=== PATIENT | male | born 1980 | race Caucasian/White ===

== ENCOUNTER 2022-08-03 00:28 | Observation (INO) | payer BC ==
[~2022-08-03] VITALS: Ht 188 cm; Wt 113.5 kg
[2022-08-03] VITALS (11 sets, daily range): BP systolic 114–152; BP diastolic 62–89
[2022-08-03] MEDS ORDERED: morphine INJ 4 MG/ML 1 ML (VIAL/SYRINGE) ONE (01:29)
[2022-08-03] MEDS ORDERED: LACTATED RINGERS 1,000 ML IV ONE (01:29)
[2022-08-03] MEDS: morphine INJ 4 MG/ML 1 ML (VIAL/SYRINGE) IVP PRN ×4 (01:33→08:16)
[2022-08-03] MEDS: LACTATED RINGERS 1,000 ML IV SCH ×3 (01:33→11:51)
[2022-08-03] MEDS ORDERED: ONDANSETRON 4 MG/2 ML (SDV) Z0FRAN IVP PRN ×2 (02:00→10:30)
[2022-08-03] MEDS ORDERED: PIPERACILLIN SODIUM/TAZOBACTAM 4.5 GM in NS (IVPB) 100 ML IV ONE (04:15)
[2022-08-03] MEDS ORDERED: ALLO300T2 PO (04:30)
[2022-08-03] MEDS ORDERED: METO50TA7 PO (04:30)
[2022-08-03] MEDS ORDERED: TRIA1CAP84 PO (04:30)
[2022-08-03] MEDS ORDERED: FLEC150T2 PO (04:35)
[2022-08-03] MEDS ORDERED: ASPI-999 PO (04:35)
[2022-08-03] MEDS: PIPERACILLIN SODIUM/TAZOBACTAM 4.5 GM in NS (IVPB) 100 ML IV SCH ×2 (06:01→14:04)
[2022-08-03] MEDS: KETOROLAC 30 MG/ML VIAL IVP PRN ×2 (08:17→17:16)
[2022-08-03] MEDS ORDERED: PANTOPRAZOLE 40 MG (PROTONIX) VIAL IV SCH (09:00)
[2022-08-03] MEDS ORDERED: BUP/EPI 0.5% 1:200,000 (SENSORCAINE) 30 ML VIAL ONE (10:29)
--- NOTE | 2022-08-03 10:29 | Consultation - Surgery ---
History of Present Illness History of Present Illness Patient Consulted On(ketan/time) 08/03/22 10:23 Time Seen by Provider: 10:06 History of Present Illness Surgery asked to consult regarding appendicitis. HPI: Pt is a 42 yo male who initially presented to [facility] with c/o RLQ pain. He told me he woke up around 2:30am on Friday with "bloating" and then he started vomiting; "I am not a puker". The vomiting got a little better with rest and then the pain started. He described it as sharp, stabbing pain made worse by movement. He rated it at its worst as 8 out of 10. He was unable to eat yesterday and when it didn't get better he went to the ER. He states this am it is ok after the Toradol and because he is not moving. Yesterday he did have some sweats and chills. Last PO intake was some fluids at 1730 yesterday. Allergies and Home Medications Allergies Coded Allergies: No Known Drug Allergies (Unverified , 08/03/22) Patient Home Medication List Home Medication List Reviewed: Yes Allopurinol (Allopurinol) 300 Mg Tablet, 300 MG PO DAILY, (Reported) Entered as Reported by: CORNELIO QUIROZ on 08/03/22429 Last Action: Reviewed Aspirin (Aspirin) 81 Mg Tab.chew, 81 MG PO, (Reported) Entered as Reported by: CORNELIO QUIROZ on 08/03/22434 Last Action: Reviewed Flecainide Acetate (Flecainide Acetate) 150 Mg Tablet, 150 MG PO BID, (Reported) Entered as Reported by: CORNELIO QUIROZ on 08/03/22434 Last Action: Reviewed Metoprolol Succinate (Metoprolol Succinate) 50 Mg Tab.er.24h, 50 MG PO DAILY, (Reported) Entered as Reported by: CORNELIO QUIROZ on 08/03/22429 Last Action: Reviewed Triamterene/Hydrochlorothiazid (Triamterene-Hctz 37.5-25 mg Cp) 37.5 Mg-25 Mg Capsule, 1 EACH PO DAILY, (Reported) Entered as Reported by: CORNELIO QUIROZ on 08/03/22429 Last Action: Reviewed Past Ttijorp-Ttzelp-Btdbxx Hx Patient Social History Smoking Status: Never a Smoker Alcohol Use?: Yes Surgeries History of Surgeries: Yes Surgeries: Nose Respiratory History of Respiratory Disorde: No Cardiovascular History of Cardiac Disorders: Yes (hx of SVT) Neurological History of Neurological Disord: No Reproductive System Hx Reproductive Disorders: No Genitourinary History of Genitourinary Disor: No Gastrointestinal History of Gastrointestinal Di: Yes Gastrointestinal Disorders: Gastroesophageal Reflux Musculoskeletal History of Musculoskeletal Dis: Yes Musculoskeletal Disorders: Gout Endocrine History of Endocrine Disorders: No HEENT History of HEENT Disorders: No Loss of Vision: Denies Hearing Impairment: Denies Cancer History of Cancer: No Psychosocial History of Psychiatric Problem: Yes Behavioral Health Disorders: ADD/ADHD Family Medical History Significant Family History: Renal Disease (Father from renal failure), Vascular Disease (Mother from blood clot) Review of Systems-General Constitutional: chills, diaphoresis EENTM: No mouth swelling, No epistaxis, No throat swelling Respiratory: No cough, No dyspnea on exertion Cardiovascular: No chest pain, No palpitations Gastrointestinal: abdominal pain (RLQ); No hematemesis, No jaundice; loss of appetite, nausea, vomiting Genitourinary: No dysuria, No frequency, No hematuria Musculoskeletal: gout, joint pain, joint swelling, muscle stiffness Skin: No change in color, No change in hair/nails Psychiatric/Neurological: Denies Anxiety, Denies Depressed, Denies Seizure, Denies Tremors Physical Exam-General Problems Physical Exam Vital Signs Vital Signs - First Documented 08/03/22 01:30 Temp 37.2 Pulse 94 Resp 20 B/P (MAP) 114/65 (81) Pulse Ox 97 O2 Delivery Room Air Capillary Refill : General Appearance: WD/WN, mild distress (secondary to pain) Eyes: Bilateral Eye PERRL, Bilateral Eye EOMI HEENT: pharynx normal; No scleral icterus (R), No scleral icterus (L) Neck: non-tender, supple Respiratory: lungs clear, normal breath sounds, no respiratory distress, no accessory muscle use Cardiovascular: regular rate, rhythm, no murmur Gastrointestinal: soft, no organomegaly, distended, guarding (voluntary), tenderness (RLQ), hernia (umbilical) Rectal: deferred Back: no CVA tenderness, no vertebral tenderness Extremities: non-tender, no pedal edema, no calf tenderness Neurologic/Psychiatric: nurse sitter II-XII nml as tested, alert, normal mood/affect, oriented x 3 Skin: normal color, warm/dry Lymphatic: no adenopathy (neck, axilla or groin) Assessment/Plan Assessment/Plan Assessment/Plan Acute Appendicitis Hx of SVT Hypokalemia Pt was sent over from [place] last night because they do not have surgical crew on the weekend. He was admitted with IV fluids, IV ABX, pain meds and anti- emetics as needed. I talked to him today about the procedure; Laparoscopic Appendectomy, possible open and all other indicated procedures. We discussed risks and complications not limited to pain, bleeding, infection, scar, damage to bowel and need for further procedure. All questions answered to his satisfaction. Will get consent and do surgery. SHAYLA HOPPER DO Aug 03, 2022 10:29
[2022-08-03] MEDS ORDERED: morphine INJ 10 MG/ML 1ML (SYR OR VIAL) IVP ONE (10:30)
[2022-08-03] MEDS ORDERED: MEPERIDINE (DEMEROL) INJ 50 MG/ML IVP ONE (10:30)
[2022-08-03] MEDS ORDERED: fentaNYL INJ 100 MCG/2 ML AMP IVP ONE (10:30)
[2022-08-03] MEDS ORDERED: LACTATED RINGERS 1,000 ML IV PRN (10:30)
[2022-08-03] MEDS ORDERED: LIDOCAINE PF 2% 5 ML (XYLOCAINE) VIAL ONE (10:33)
[2022-08-03] MEDS ORDERED: SEVOFLURANE (ULTANE) 15 ML INHAL SOLN ONE ×2 (10:33→12:10)
[2022-08-03] MEDS ORDERED: proPOfol 200 MG/20 ML (DIPRIVAN) VIAL IV ONE (10:33)
[2022-08-03] MEDS ORDERED: ONDANSETRON 4 MG/2 ML (SDV) Z0FRAN ONE (10:33)
[2022-08-03] MEDS ORDERED: fentaNYL INJ 100 MCG/2 ML AMP ONE (10:33)
[2022-08-03] MEDS ORDERED: MIDAZOLAM 2 MG/2 ML (VERSED) VIAL ONE (10:33)
[2022-08-03] MEDS ORDERED: morphine INJ 10 MG/ML 1ML (SYR OR VIAL) ONE (11:07)
[2022-08-03] MEDS ORDERED: ceFAZolin INJECTION 0 MG ONE (11:14)
[2022-08-03] MEDS ORDERED: ROCURONIUM 50 MG/5 ML (ZEMURON) VIAL IV ONE (12:18)
[2022-08-03 12:42] LABS: CLARITY,URINE TURBID; COLOR,URINE ORANGE; GLUCOSE, URINE (UA) NEGATIVE (NEGATIVE); KETONES,URINE NEGATIVE (NEGATIVE); LEUKOCYTE ESTERASE ,URINE NEGATIVE (NEGATIVE); NITRITE,URINE POSITIVE (NEGATIVE); PROTEIN,URINE 1+ (NEGATIVE)
[2022-08-03 13:07] LABS: AMORPHOUS SEDIMENT,UR LARGE AMOR URATES /LPF; BACTERIA,URINE NEGATIVE /HPF; BILIRUBIN,URINE 1+ (NEGATIVE)
--- NOTE | 2022-08-03 13:07 | Progress Note-Post Operative ---
Post-Operative Progess Note Surgeon (s)/Urology Nurse (s) Surgeon SHAYLA HOPPER DO Urology Nurse: none Pre-Operative Diagnosis Acute Appendicitis Post-Operative Diagnosis Same plus perforation and necrotic appendix B/L Indirect Inguinal hernia Procedure & Operative Findings Date of Procedure 08/03/22 Procedure Performed/Findings PROCEDURE: Laparoscopic appendectomy. COMPLICATIONS: None. INDICATIONS: The patient is a 42 year old male who has been having right lower quadrant abdominal pain. Patient's exam consistent with appendicitis. I discussed risk and benefits of laparoscopic appendectomy and all indicated procedures. The patient understands the risks and benefits and wishes to proceed. Consent was signed on the chart. DESCRIPTION OF PROCEDURE: The patient was taken to the operating suite, prepped and draped in a sterile fashion. Timeout was performed. Local anesthetic was infiltrated just above the umbilicus and 11-blade scalpel was used to make a skin incision. Cautery was used to dissect down to the fascia and scored. Kochers were used to grasp and elevate it and the abdomen was then entered. An 0 Vicryl was placed in a [id number] fashion for closure at the end of the case. The balloon trocar was inserted into the abdomen and pneumoperitoneum was achieved. Under direct visualization of the laparoscope, a 5 mm trocar was placed in the suprapubic region and a 5 mm trocar was placed in the left lower quadrant. Appendix was located, it was almost embedded in the wall and retrocecal. It was very inflamed and while moving it some purulent fluid came out. Multiple pictures were taken and able to identify the terminal ileum and cecum. Started dissecting down to the base of the appendix with the Ligasure and once around it then able to use Stapling device. An Endo-VIKAS 2.5 stapler was then fired across the base of the appendix. The meso- appendix was then divided. It was then placed in an Endobag and removed through the 12 mm trocar site. The abdomen was then irrigated with approximately 2 Liters and suctioned out. There was some scant bleeding and I placed a surgicel. I then placed a 19French adriano drain in right paracolic gutter and brought it out through the suprapubic port site. I then noted bilateral indirect inguinal hernias. The abdomen was then desufflated and the trocars were removed. The 0 Vicryl placed at the beginning of the case was then tied closing the 12 mm fascial defect. The drain was sutured in place using a 3-0 Nylone. The skin was then closed using 4-0 Monocryl in a subcuticular fashion. The abdomen was then washed and dried and Skin Affix was placed over the incisions. The patient tolerated the procedure well without any complications and was taken to the recovery room in stable condition. Anesthesia Type GET Estimated Blood Loss Estimated blood loss (mL): less than 10ml Specimens/Packing Specimens Removed appendix SHAYLA HOPPER DO Aug 03, 2022 13:07
[2022-08-03] MEDS ORDERED: AMOX-355 PO (13:15)
[2022-08-03] MEDS ORDERED: ACHD5005 PO (13:15)
--- NOTE | 2022-08-03 13:18 | Discharge Inst-Surgical ---
Discharge Inst-Surgical Depart Medication/Instructions New, Converted or Re-Newed RX: Transmitted to Pharmacy Patient Instructions Follow up Appt: Make appointment for 1 week. [phone] Instructions: No lifting greater than 20 pounds. No strenuous activity. May shower in 24 hours, no tub bath or soaking. Use incentive spirometer at home as directed. No Smoking Skin/Wound Care: May remove bandages in am. You need to leave the Dermabond on incision it will fall off on it's own. Leave drain in place and record output. Symptoms to Report: Appetite Changes, Extremity Discoloration, Numbness/Tingling, Swelling Incr eased, Bleeding Excessive, Eyesight Changes, Pain Increased, Urine Color Change, Constipation(Persistent), Fever over 101 degree F, Pain/Pressure in chest, Urinating Difficulty, Cough Up/Vomit Blood, Heart Beat Irreg/Pounding, Pain/Pressure in jaw, Cramps in feet or legs, Lightheadedness, Pain/Pressure in shoulder, Diarrhea(Persistent), Memory Changes Suddenly, Questions/Concerns, Weight gain consecutive days, Dizziness/Fainting, Nausea/Vomiting, Shortness of Breath, Weight gain over 2 pounds If questions or concerns contact your physician Or seek help at emergency department. Activity Activity as Tolerated: Yes Activity Instructions: Avoid Stress to Incision Driving Instructions: No Driving/Refer to Dr. Mcdaniel Discharge Diet: No Restrictions Diet After 24 Hours: Clear Liquid if Nauseous If Any Problems/Questions/Issu: Contact Your Physician, Go to Emergency Room Skin/Wound Care Infection Signs and Symptoms: Increased Redness, Foul Odor of Wound, Increased Drainage, Skin Itchy or Has a Rash, Increased Swelling, Temperature Above 101 F Wound Care Comment: heating pad to shoulder or neck tonight for pain. record drain output Bathing Instructions: Shower Stitches/Suzette/Dermabond Dis: Dermond SHAYLA HOPPER DO Aug 03, 2022 13:18
--- NOTE | 2022-08-03 14:39 | Anesthesia-General Post-Op ---
General Patient Condition Mental Status/LOC: Same as Preop Cardiovascular: Satisfactory Nausea/Vomiting: Absent Respiratory: Satisfactory Pain: Controlled Complications: Absent Post Op Complications Complications None Follow Up Care/Instructions Patient Instructions None needed. Anesthesia/Patient Condition Patient Condition Patient is doing well, no complaints, stable vital signs, no apparent adverse anesthesia problems. No complications reported per nursing. PEBBLES LITTLE CRNA Aug 03, 2022 14:39
[2022-08-03] MEDS ORDERED: HYDROcodone/APAP 5 MG/325 MG (LORTAB) TAB ONE (17:29)
[2022-08-03] MEDS ORDERED: HYDROcodone/APAP 5 MG/325 MG (LORTAB) TAB PO ONE (17:30)
== END 2022-08-03 19:04 | disposition home or self-care (01) ==
LOC: INTOOBSV 01:15 → 4TH 01:15 → UNDOADMOB 01:15 → UNDODISOB 19:04
PROVIDERS: ADMIT Surgery; ATTEND Surgery
DX: K35.32 Acute appendicitis with perforation, localized peritonitis, and gangrene, without abscess (principal); E87.6 Hypokalemia; Z86.79 Personal history of other diseases of the circulatory system
CPT/HCPCS: 81000; 87081; 96361; 96374; 96375; 96376